=== PATIENT | female | born 1990 | race African-American/Black ===

== ENCOUNTER 2017-03-19 18:49 | Emergency (ER) | payer BC ==
[~2017-03-19] VITALS: Ht 170.2 cm; Wt 56.7 kg
[2017-03-19 19:25] VITALS: BP 117/59
[2017-03-19] MEDS ORDERED: NAPR500T8 PO (20:00)
--- NOTE | 2017-03-19 20:01 | PHYS DOC ---
Past Medical History Past Medical History: Asthma Past Surgical History: No Surgical History Alcohol Use: None Drug Use: None Adult General Chief Complaint Chief Complaint: FOOT INJURY PAIN HPI HPI Patient is a 26 year old female who presents with right great toe pain that began a week ago after somebody stepped on her foot. She also states she kicked a table one week ago. Review of Systems Review of Systems Constitutional: Denies fever or chills [] Musculoskeletal: right great toe pain Integument: Denies rash or skin lesions [] Neurologic: Denies headache, focal weakness or sensory changes [] Allergies Allergies Allergies Coded Allergies Type Severity Reaction Last Updated Verified No Known Drug Allergies 11/25/13 No Physical Exam Physical Exam Constitutional: Well developed, well nourished, no acute distress, non-toxic appearance. [] Skin: Warm, dry, no erythema, no rash. [] Back: No tenderness, no CVA tenderness. [] Extremities: Right foot with no obvious deformity. Tenderness on palpation of the right great toe. Limited range of motion to the right great toe due to pain. +2 right pedal pulse. Cap refill less than 2 seconds the right toes. Sensation intact to the right foot. Neurologic: Alert and oriented X 3, normal motor function, normal sensory function, no focal deficits noted. [] Psychologic: Affect normal, judgement normal, mood normal. [] Current Patient Data Vital Signs Vital Signs Date Time Temp Pulse Resp B/P (MAP) Pulse Ox O2 Delivery O2 Flow Rate FiO2 03/19/17 19:25 98.5 73 18 100 Room Air 98.5 EKG EKG [] Radiology/Procedures Radiology/Procedures [] Course & Med Decision Making Course & Med Decision Making Pertinent Labs and Imaging studies reviewed. (See chart for details) Patient is in the ED with right great toe pain after someone stepped on it and she kicked furniture a week ago. Right foot x-rays interpreted by Dr. Alvarado are negative for any acute findings. Discharged with instructions to ice and elevate the extremity. Follow-up with orthopedic doctor in a week if pain continues. Dragon Disclaimer Dragon Disclaimer This electronic medical record was generated, in whole or in part, using a voice recognition dictation system. Departure Departure Impression: Primary Impression: Contusion of foot, right Disposition: 01 HOME, SELF-CARE Condition: STABLE Referrals: PEPPER POWELL DO (PCP) Follow-up in one week Patient Instructions: Contusion, [id number] Additional Instructions: You were seen for right great toe contusion. Ice and elevate the extremity. Take the prescribed medicine as needed for pain. Follow-up with orthopedic doctor provided in the next 7 days if symptoms continue. Scripts Naproxen (NAPROXEN) 500 Mg Tablet.dr 1 TAB PO BID, #30 TAB 0 Refills Prov: ARISTIDES JIMÉNEZ APRN 03/19/17 Problem Qualifiers Primary Impression: Contusion of foot, right Encounter type: initial encounter Qualified Codes: S90.31XA - Contusion of right foot, initial encounter ARISTIDES JIMÉNEZ APRN Mar 19, 2017 20:00
--- NOTE | 2017-03-20 07:49 | RAD ---
Indication: Foot pain. Technique: 3 views of the right foot are submitted for review. No comparison is available. Findings: There is no fracture or dislocation. There is no osseous lesion. Impression: Negative for fracture.
== END 2017-03-19 20:06 | disposition home or self-care (01) ==
LOC: ER 18:49
DX: S90.111A Contusion of right great toe without damage to nail, initial encounter (principal); J45.909 Unspecified asthma, uncomplicated; W22.8XXA Striking against or struck by other objects, initial encounter; Y93.89 Activity, other specified; Y92.89 Other specified places as the place of occurrence of the external cause; Y99.8 Other external cause status
CPT/HCPCS: 73630; 99284